=== PATIENT | female | born 1940 | race Caucasian/White ===

== ENCOUNTER 2019-10-17 18:19 | Observation (INO) | payer MEDICARE, OTHER ==
[2019-10-17] MEDS ORDERED: BABY ASPIRIN 81 MG CHEW PO ONE (18:38)
[2019-10-17] MEDS ORDERED: BABY ASPIRIN 81 MG CHEW ONE (18:42)
--- NOTE | 2019-10-17 18:46 | ERPHSYRPT ---
- History of Present Illness Source: patient, family Exam Limitations: no limitations Patient Subjective Stated Complaint: pt here for tightness to jaw and face since 5pm today, she states that is how she left when she had her last DC, she has 3 heart stents, only other co is nausea. Triage Nursing Assessment: pt alert, walked in resp easy, chest clear, abd soft , skin w/d/p. no edema noted , Physician History: The patient is 78-year-old female with a past medical history significant for CAD, coronary artery stents reportedly placed in [place] in either 2012 or 2013, hyperlipidemia, and osteoarthritis of the right knee presents with a chief complaint of bilateral jaw pain, nausea, and the urge to move her bowels that started around 1700 this evening after she got done eating dinner. She states that she got from the dinner table after eating dinner and started walking and experience her symptoms shortly thereafter. Her nausea and urge to move her bowels have since resolved however she is currently complaining of persistent bilateral jaw pain and states that she has felt similar symptoms that led to her coronary artery stents and were an anginal equivalent at that time. She denies dizziness, syncope, back pain, chest pain or chest tightness, and dyspnea. Denies diaphoresis. She reportedly took 2 baby aspirin this morning and takes this same amount of aspirin daily. She is no longer taking Plavix. She states her proof carrier is Dr. Murrell in [place]. He seeks treatment today in the emergency department out of concern she may be suffering a heart attack. She was accompanied by her daughter who also provided details pertaining to the HPI. Associated Symptoms: nausea, other (Bilateral jaw pain), No abdominal pain, No shortness of breath, No diaphoresis, No cough, No chest pain Allergies/Adverse Reactions: Beta-Blockers (Beta-Adrenergic Bloc Allergy (Verified 10/17/19 18:30) morphine Allergy (Verified 10/17/19 18:30) Hives Home Medications: Aspirin 81 gm Chew [Baby Aspirin 81 mg Chew] 81 mg PO DAILY 06/05/15 [ History] Pravastatin Sodium 20 mg DAILY 10/17/19 [History] Hx Tetanus, Diphtheria Vaccination/Date Given: No Hx Influenza Vaccination/Date Given: No Hx Pneumococcal Vaccination/Date Given: No Immunizations Up to Date: Yes - Review of Systems Constitutional: No Fever, No Chills Eyes: No Symptoms Ears, Nose, & Throat: Other (Bilateral jaw pain, globus sensation) Respiratory: No Symptoms, No Dyspnea, No Dyspnea on Exertion (HYLTON), No Stridor, No Wheezing Cardiac: No Chest Pain, No Edema, No Palpitations, No Syncope, No Orthopnea Abdominal/Gastrointestinal: Nausea, No Abdominal Pain, No Vomiting, No Diarrhea , No Constipation Genitourinary Symptoms: No Dysuria Musculoskeletal: No Symptoms, No Back Pain Skin: No Symptoms Neurological: No Symptoms Psychological: No Symptoms Endocrine: No Symptoms All Other Systems: Reviewed and Negative - Past Medical History Pertinent Past Medical History: Yes Neurological History: No Pertinent History ENT History: No Pertinent History Cardiac History: Coronary Artery Disease, Myocardial Infarction (DC) Respiratory History: No Pertinent History Endocrine Medical History: No Pertinent History Musculoskeletal History: No Pertinent History GI Medical History: No Pertinent History History: No Pertinent History Psycho-Social History: No Pertinent History Female Reproductive Disorders: No Pertinent History - Past Surgical History Past Surgical History: Yes Neuro Surgical History: No Pertinent History Cardiac: Cardiac Catheterization, Cardiac Stent Respiratory: No Pertinent History Gastrointestinal: No Pertinent History Genitourinary: No Pertinent History Musculoskeletal: No Pertinent History Female Surgical History: Hysterectomy Other Surgical History: left shoulder - Social History Smoking Status: Never smoker Exposure to second hand smoke: No Drug Use: none Patient Lives Alone: No - Female History Hx Last Menstrual Period: post Hx Now: No - Nursing Vital Signs Nursing Vital Signs: Initial Vital Signs Temperature 97.0 F 10/17/19 18:22 Pulse Rate 70 10/17/19 18:22 Respiratory Rate 18 10/17/19 18:22 Blood Pressure 175/97 10/17/19 18:22 O2 Sat by Pulse Oximetry 98 10/17/19 18:22 Pain Scale Pain Intensity 0 - Physical Exam General Appearance: no apparent distress, alert Eye Exam: PERRL/EOMI, eyes nml inspection, No scleral icterus, No pale conjunctivae, No photophobia Ears, Nose, Throat Exam: normal ENT inspection, TMs normal, No pharynx normal, No TM abnormal (R), No TM abnormal (L), No pharyngeal erythema, No tonsillar exudate Neck Exam: normal inspection, non-tender, supple, No meningismus Respiratory Exam: normal breath sounds, lungs clear, airway intact, No chest tenderness, No respiratory distress, No diminished breath sounds, No accessory muscle use Cardiovascular Exam: normal heart sounds, normal peripheral pulses, tachycardia , capillary refill <2 sec, No murmur, No friction rub, No gallop, No edema Gastrointestinal/Abdomen Exam: soft, No tenderness, No distention, No mass, No guarding Pelvic Exam: not done Rectal Exam: deferred Back Exam: normal inspection Extremity Exam: normal inspection, other (No asymmetric lower extremity edema, calf tenderness, or erythema to suggest ) Neurologic Exam: alert, oriented x 3, cooperative, normal mood/affect Skin Exam: normal color, warm, dry, No rash, No petechiae, No jaundice SpO2 Interpretation: normal SpO2: 98 O2 Delivery: Room Air - Course Nursing assessment & vital signs reviewed: Yes EKG Interpreted by Me: RATE, Sinus Tach, NORMAL AXIS, NORMAL INTERVALS, Other ( Sinus tachycardia, ventricular rate 110 bpm, SD interval 183 ms, QRS duration 108 ms, QT/QTc 342/462 ms, no evidence of obvious myocardial ischemia or injury , EKG appears similar to an EKG obtained on July 15, 2016, couplet of PVCs present) - Radiology Exams Chest X-ray Interpretation: Interpreted by me, Reviewed by me (Negative for acute cardiopulmonary pathology. There appears to be possible hiatal hernia.) Ordered Tests: Active Orders 24 hr Category Date Time Status Fixed Income Manager STAT Care 10/17/19 18:35 Active EKG-ER Only STAT Care 10/17/19 18:35 Active IV Insertion STAT Care 10/17/19 18:35 Active Pulse Oximetry (ED) STAT Care 10/17/19 18:38 Active CHEST 2 VIEWS (PA AND LAT) Stat Exams 10/17/19 18:39 Taken BMP Stat Lab 10/17/19 18:50 Completed CBC W DIFF Stat Lab 10/17/19 18:50 Completed D-DIMER QUANTITATIVE Stat Lab 10/17/19 18:50 Completed NT PRO BNP Stat Lab 10/17/19 18:50 Completed TROPONIN Q3H Lab 10/17/19 18:50 Completed TROPONIN Q3H Lab 10/17/19 21:50 Completed TROPONIN Q3H Lab 10/18/19 00:45 Ordered TROPONIN Q3H Lab 10/18/19 03:45 Ordered TROPONIN Q3H Lab 10/18/19 06:45 Ordered Medication Summary Discontinued Medications Generic Name Dose Route Start Last Admin Trade Name Freq PRN Reason Stop Dose Admin Aspirin 162 mg 10/17/19 18:38 10/17/19 18:44 Baby Aspirin 81 Mg Chew PO 10/17/19 18:39 162 mg STAT ONE Administration Aspirin Confirm 10/17/19 18:42 Baby Aspirin 81 Mg Chew Administered 10/17/19 18:43 Dose 162 mg .ROUTE .STK-MED ONE Lab/Rad Data: Laboratory Result Diagrams 10/17/19 18:50 10/17/19 18:50 Laboratory Results 10/17/19 10/17/19 10/17/19 Range/Units 21:50 18:50 18:50 WBC (4.0-10.5) K/mm3 RBC (4.1-5.4) M/mm3 Hgb (12.0-16.0) gm/dl Hct (35-47) % MCV (78-100) fl MCH (26-32) pg MCHC (32-36) g/dl RDW (11.5-14.0) % Plt Count (150-450) K/mm3 MPV (7.5-11.0) fl Gran % (36.0-66.0) % Eos # (Auto) (0-0.5) Absolute Lymphs (auto) (1.0-4.6) Absolute Monos (auto) (0.0-1.3) Lymphocytes % (24.0-44.0) % Monocytes % (0.0-12.0) % Eosinophils % (0.00-5.0) % Basophils % (0.0-0.4) % Absolute Granulocytes (1.4-6.9) Basophils # (0-0.4) D-Dimer (215-500) ng/mL Sodium (137-145) mmol/L Potassium (3.5-5.1) mmol/L Chloride (98-107) mmol/L Carbon Dioxide (22-30) mmol/L Anion Gap (5-15) MEQ/L BUN (7-17) mg/dL Creatinine (0.52-1.04) mg/dL Estimated GFR ML/MIN Glucose (74-106) mg/dL Hemoglobin A1c 5.78 (4.5-6.0) % Calcium (8.4-10.2) mg/dL Troponin I < 0.012 < 0.012 (0.000-0.034) ng/mL NT-Pro-B Natriuret Pep (0-1800) pg/mL Slides for Path Review 10/17/19 10/17/19 10/17/19 Range/Units 18:50 18:50 18:50 WBC 4.3 (4.0-10.5) K/mm3 RBC 4.05 L (4.1-5.4) M/mm3 Hgb 12.7 (12.0-16.0) gm/dl Hct 37.8 (35-47) % MCV 93.3 (78-100) fl MCH 31.4 (26-32) pg MCHC 33.6 (32-36) g/dl RDW 12.5 (11.5-14.0) % Plt Count 229 (150-450) K/mm3 MPV 9.1 (7.5-11.0) fl Gran % 88.5 H (36.0-66.0) % Eos # (Auto) 0 (0-0.5) Absolute Lymphs (auto) 0.45 L (1.0-4.6) Absolute Monos (auto) 0.03 (0.0-1.3) Lymphocytes % 10.6 L (24.0-44.0) % Monocytes % 0.7 (0.0-12.0) % Eosinophils % 0.0 (0.00-5.0) % Basophils % 0.2 (0.0-0.4) % Absolute Granulocytes 3.77 (1.4-6.9) Basophils # 0.01 (0-0.4) D-Dimer 467 (215-500) ng/mL Sodium 139 (137-145) mmol/L Potassium 3.8 (3.5-5.1) mmol/L Chloride 107 (98-107) mmol/L Carbon Dioxide 22 (22-30) mmol/L Anion Gap 13.8 (5-15) MEQ/L BUN 19 H (7-17) mg/dL Creatinine 0.61 (0.52-1.04) mg/dL Estimated GFR > 60.0 ML/MIN Glucose 334 H (74-106) mg/dL Hemoglobin A1c (4.5-6.0) % Calcium 9.6 (8.4-10.2) mg/dL Troponin I (0.000-0.034) ng/mL NT-Pro-B Natriuret Pep 281 (0-1800) pg/mL Slides for Path Review YES - Progress Progress: improved, re-examined Progress Note: 10/17/19 18:55 The charge nurse back to [facility] and requested records pertaining to any cardiology progress notes, cardiac cath reports or echocardiograms that may be present in the record system for me to review. I reviewed the patient's EMR today. She was admitted on July 15, 2016 for chest pain and underwent a chest pain rule out during that admission and subsequently was discharged. She had an echocardiogram that same day which showed evidence of no wall motion abnormality and an LVEF 50 to 60%. She had some evidence of left ventricular diastolic dysfunction but otherwise no major abnormalities. Also reviewed her EKG dated July 15, 2016 which appears similar to EKG cristina. 10/17/19 19:13 Records were faxed from [facility]. It appears she had a cardiac catheterization on #29 2015 which showed 25% in-stent stenosis of the distal portion of the stent located in her LAD. The left circumflex was short normal. Right coronary artery was dominant and noted to have 20% narrowing in the midsegment. The second branch of the LAD shows 60% narrowing in its ostium. 10/17/19 20:13 10/17/19 20:[address] Mike, the patient's primary care provider, discussed the case with him. He agreed to admit if the patient's second troponin comes back within normal limits otherwise, if she does rule in ACS, she will need to be transfer to [facility] given that is where her proof carrier is located. 10/17/19 22:25 His second troponin is within normal limits. She will be admitted to the medical floor with telemetry for chest pain rule out and Dr. Mike to see in the morning. Discussed with : Nia (Spoke to Dr. Mike, the patient's primary care provider, and discussed the case with him. He agreed to admit for observation for chest pain rule out if the patient second troponin is within normal limits. If her second troponin is positive she will likely be transferred to [facility] for further evaluation and management.) Counseled pt/family regarding: lab results, diagnosis, rad results - Departure Departure Disposition: Observation Clinical Impression: Jaw pain, Atypical chest pain Condition: Stable Critical Care Time: No Referrals: SARKIS MIKE MD [Primary Care Provider] -
[2019-10-17 18:59] LABS: Absolute Neutrophil Ct (ANC) 3.77 (1.4-6.9); BASOPHIL % 0.2 % (0.0-0.4); Basophil (Absolute #) 0.01 (0-0.4); Eosinophil (Absolute #) 0 (0-0.5); Hematocrit 37.8 % (35-47); Hemoglobin 12.7 gm/dl (12.0-16.0); Lymphocyte (Absolute #) 0.45 (1.0-4.6); Lymphocytes % 10.6 % (24.0-44.0); Mean Cell Volume 93.3 fl (78-100); Mean Corpuscular Hemoglobin 31.4 pg (26-32); Mean Corpuscular Hgb Concent. 33.6 g/dl (32-36); Mean Platelet Volume 9.1 fl (7.5-11.0); Monocyte (Absolute #) 0.03 (0.0-1.3); Monocytes % 0.7 % (0.0-12.0); Neutrophil % 88.5 % (36.0-66.0); Platelet Count 229 K/mm3 (150-450); Red Blood Count 4.05 M/mm3 (4.1-5.4); Red Cell Distribution Width 12.5 % (11.5-14.0); White Blood Count 4.3 K/mm3 (4.0-10.5)
[2019-10-17 19:19] LABS: ANION GAP 13.8 MEQ/L (5-15); BLOOD UREA NITROGEN 19 mg/dL (7-17); CHLORIDE 107 mmol/L (98-107); Calcium 9.6 mg/dL (8.4-10.2); Carbon Dioxide 22 mmol/L (22-30); Creatinine 1 0.61 mg/dL (0.52-1.04); Glucose 334 mg/dL (74-106); NT PRO BNP 281 pg/mL (0-1800); Potassium 3.8 mmol/L (3.5-5.1); SODIUM 139 mmol/L (137-145)
[2019-10-17 21:37] LABS: Slide Review 1 YES
[2019-10-17] MEDS ORDERED: MILK OF MAGNESIA 30 ML PO PRN (22:40)
[2019-10-17] MEDS ORDERED: Senokot-S Tablet PO PRN (22:40)
[2019-10-17] MEDS ORDERED: Zofran 4 MG/2 ML VIAL IV PRN (22:40)
[2019-10-17] MEDS ORDERED: MAALOX ES 30 ML UNIT DOSE PO PRN (22:40)
[2019-10-17] MEDS ORDERED: TYLENOL 325 MG PO PRN (22:40)
[2019-10-18 05:09] LABS: Risk Ratio 1.9
[2019-10-18] MEDS ORDERED: Sodium Chloride 0.9% 10 ML FLUSH Syringe IV SCH (06:00)
[2019-10-18 07:53] VITALS: BP 124/64; PULSE 86; O2SAT 93
--- NOTE | 2019-10-18 08:06 | PCM.SSS ---
History of Present Illness - Chief Complaint Chief Complaint: Atypical chest pain History of Present Illness: is a 78 year old female who presented to the ER with tightness in her face and neck with globus sensation, symptoms similar to previous CA. There was no chest pain, no shortness of breath, symptoms began after eating dinner and she never eats sugar but ate some donuts, she has been symptom free since admission and requesting to go home this morning. She has a known hx of CAD with stents and sees Dr Major. - Review of Systems Constitutional: No Fever, No Chills Respiratory: No Cough, No Short Of Breath Cardiac: No Chest Pain, No Edema, No Syncope Abdominal/Gastrointestinal: No Abdominal Pain, No Nausea, No Vomiting, No Diarrhea Genitourinary Symptoms: No Dysuria All Other Systems: Reviewed and Negative Medications & Allergies Home Medications: Home Medication List Aspirin 81 gm Chew [Baby Aspirin 81 mg Chew] 81 mg PO DAILY 06/05/15 [ History Confirmed 10/17/19] Pravastatin Sodium 20 mg DAILY 10/17/19 [History Confirmed 10/17/19] Albuterol Sulfate [Albuterol Sulfate Hfa] 2 puffs IH Q4-6HPRN PRN 10/18/19 [ History Confirmed 10/18/19] Allergies/Adverse Reactions: Allergies Allergy/AdvReac Type Severity Reaction Status Date / Time Beta-Blockers Allergy Verified 10/17/19 18:30 (Beta-Adrenergic Bloc morphine Allergy Hives Verified 10/17/19 18:30 - Past Medical History Past Medical History: Yes Neurological History: No Pertinent History ENT History: No Pertinent History Cardiac History: Coronary Artery Disease, Myocardial Infarction (CA) Respiratory History: Asthma Endocrine Medical History: No Pertinent History Musculoskelatal History: No Pertinent History GI Medical History: No Pertinent History History: No Pertinent History Pyscho-Social History: No Pertinent History Reproductive Disorders: No Pertinent History - Female History Hx Last Menstrual Period: post menopausal Are you now?: No - Past Surgical History Past Surgical History: Yes Neuro Surgical History: No Pertinent History Cardiac History: Cardiac Catheterization, Cardiac Stent Respiratory Surgery: No Pertinent History GI Surgical History: No Pertinent History Genitourinary Surgical Hx: No Pertinent History Musculskeletal Surgical Hx: No Pertinent History Female Surgical History: Hysterectomy Other Surgical History: left shoulder - Social History Smoking Status: Never smoker Exposure to second hand smoke: No Alcohol: None Drug Use: none - Physical Exam Vital Signs: Vital Signs - 24 hr Temp Pulse Pulse Resp BP Pulse Ox 10/18/19 07:53 97.9 F 86 17 124/64 93 L 10/18/19 07:08 94 L 10/18/19 04:00 97.8 F 77 16 134/75 95 10/17/19 22:55 97.8 F 87 18 168/79 96 10/17/19 22:25 98 10/17/19 21:50 89 22 142/81 95 10/17/19 21:49 86 18 139/80 94 L 10/17/19 20:54 92 H 16 139/85 94 L 10/17/19 20:46 99 H 20 136/76 98 10/17/19 19:45 104 H 20 152/80 95 10/17/19 19:05 96 10/17/19 18:58 104 H 18 123/70 94 L 10/17/19 18:42 95 10/17/19 18:22 97.0 F 110 H 70 18 175/97 98 General Appearance: no apparent distress, alert Neurologic Exam: alert, oriented x 3, cooperative, normal mood/affect, nml cerebellar function, nml station & gait, sensation nml, No motor deficits Neck Exam: normal inspection, non-tender, supple, full range of motion Respiratory Exam: normal breath sounds, lungs clear, No respiratory distress Cardiovascular Exam: regular rate/rhythm, normal heart sounds, normal peripheral pulses Gastrointestinal/Abdomen Exam: soft, normal bowel sounds, No tenderness, No mass Extremity Exam: normal inspection, normal range of motion, pelvis stable Skin Exam: normal color, warm, dry, No rash Results - Labs Lab/Micro Results: Lab Results-Last 24 Hours 10/17/19 10/17/19 10/17/19 Range/Units 18:50 18:50 18:50 WBC 4.3 (4.0-10.5) K/mm3 RBC 4.05 L (4.1-5.4) M/mm3 Hgb 12.7 (12.0-16.0) gm/dl Hct 37.8 (35-47) % MCV 93.3 (78-100) fl MCH 31.4 (26-32) pg MCHC 33.6 (32-36) g/dl RDW 12.5 (11.5-14.0) % Plt Count 229 (150-450) K/mm3 MPV 9.1 (7.5-11.0) fl Gran % 88.5 H (36.0-66.0) % Eos # (Auto) 0 (0-0.5) Absolute Lymphs (auto) 0.45 L (1.0-4.6) Absolute Monos (auto) 0.03 (0.0-1.3) Lymphocytes % 10.6 L (24.0-44.0) % Monocytes % 0.7 (0.0-12.0) % Eosinophils % 0.0 (0.00-5.0) % Basophils % 0.2 (0.0-0.4) % Absolute Granulocytes 3.77 (1.4-6.9) Basophils # 0.01 (0-0.4) D-Dimer 467 (215-500) ng/mL Sodium 139 (137-145) mmol/L Potassium 3.8 (3.5-5.1) mmol/L Chloride 107 (98-107) mmol/L Carbon Dioxide 22 (22-30) mmol/L Anion Gap 13.8 (5-15) MEQ/L BUN 19 H (7-17) mg/dL Creatinine 0.61 (0.52-1.04) mg/dL Estimated GFR > 60.0 ML/MIN Glucose 334 H (74-106) mg/dL Hemoglobin A1c (4.5-6.0) % Calcium 9.6 (8.4-10.2) mg/dL Troponin I (0.000-0.034) ng/mL NT-Pro-B Natriuret Pep 281 (0-1800) pg/mL Triglycerides (30-150) mg/dL Cholesterol (50-200) mg/dL LDL Cholesterol (30-100) mg/dL HDL Cholesterol (40-60) mg/dL Heart Disease Risk Ratio Slides for Path Review YES 10/17/19 10/17/19 10/17/19 Range/Units 18:50 18:50 21:50 WBC (4.0-10.5) K/mm3 RBC (4.1-5.4) M/mm3 Hgb (12.0-16.0) gm/dl Hct (35-47) % MCV (78-100) fl MCH (26-32) pg MCHC (32-36) g/dl RDW (11.5-14.0) % Plt Count (150-450) K/mm3 MPV (7.5-11.0) fl Gran % (36.0-66.0) % Eos # (Auto) (0-0.5) Absolute Lymphs (auto) (1.0-4.6) Absolute Monos (auto) (0.0-1.3) Lymphocytes % (24.0-44.0) % Monocytes % (0.0-12.0) % Eosinophils % (0.00-5.0) % Basophils % (0.0-0.4) % Absolute Granulocytes (1.4-6.9) Basophils # (0-0.4) D-Dimer (215-500) ng/mL Sodium (137-145) mmol/L Potassium (3.5-5.1) mmol/L Chloride (98-107) mmol/L Carbon Dioxide (22-30) mmol/L Anion Gap (5-15) MEQ/L BUN (7-17) mg/dL Creatinine (0.52-1.04) mg/dL Estimated GFR ML/MIN Glucose (74-106) mg/dL Hemoglobin A1c 5.78 (4.5-6.0) % Calcium (8.4-10.2) mg/dL Troponin I < 0.012 < 0.012 (0.000-0.034) ng/mL NT-Pro-B Natriuret Pep (0-1800) pg/mL Triglycerides (30-150) mg/dL Cholesterol (50-200) mg/dL LDL Cholesterol (30-100) mg/dL HDL Cholesterol (40-60) mg/dL Heart Disease Risk Ratio Slides for Path Review 10/18/19 10/18/19 10/18/19 Range/Units 01:00 03:50 03:50 WBC (4.0-10.5) K/mm3 RBC (4.1-5.4) M/mm3 Hgb (12.0-16.0) gm/dl Hct (35-47) % MCV (78-100) fl MCH (26-32) pg MCHC (32-36) g/dl RDW (11.5-14.0) % Plt Count (150-450) K/mm3 MPV (7.5-11.0) fl Gran % (36.0-66.0) % Eos # (Auto) (0-0.5) Absolute Lymphs (auto) (1.0-4.6) Absolute Monos (auto) (0.0-1.3) Lymphocytes % (24.0-44.0) % Monocytes % (0.0-12.0) % Eosinophils % (0.00-5.0) % Basophils % (0.0-0.4) % Absolute Granulocytes (1.4-6.9) Basophils # (0-0.4) D-Dimer (215-500) ng/mL Sodium (137-145) mmol/L Potassium (3.5-5.1) mmol/L Chloride (98-107) mmol/L Carbon Dioxide (22-30) mmol/L Anion Gap (5-15) MEQ/L BUN (7-17) mg/dL Creatinine (0.52-1.04) mg/dL Estimated GFR ML/MIN Glucose (74-106) mg/dL Hemoglobin A1c (4.5-6.0) % Calcium (8.4-10.2) mg/dL Troponin I < 0.012 < 0.012 (0.000-0.034) ng/mL NT-Pro-B Natriuret Pep (0-1800) pg/mL Triglycerides 78 (30-150) mg/dL Cholesterol 169 (50-200) mg/dL LDL Cholesterol 69 (30-100) mg/dL HDL Cholesterol 87 H (40-60) mg/dL Heart Disease Risk Ratio 1.9 Slides for Path Review 10/18/19 Range/Units 06:45 WBC (4.0-10.5) K/mm3 RBC (4.1-5.4) M/mm3 Hgb (12.0-16.0) gm/dl Hct (35-47) % MCV (78-100) fl MCH (26-32) pg MCHC (32-36) g/dl RDW (11.5-14.0) % Plt Count (150-450) K/mm3 MPV (7.5-11.0) fl Gran % (36.0-66.0) % Eos # (Auto) (0-0.5) Absolute Lymphs (auto) (1.0-4.6) Absolute Monos (auto) (0.0-1.3) Lymphocytes % (24.0-44.0) % Monocytes % (0.0-12.0) % Eosinophils % (0.00-5.0) % Basophils % (0.0-0.4) % Absolute Granulocytes (1.4-6.9) Basophils # (0-0.4) D-Dimer (215-500) ng/mL Sodium (137-145) mmol/L Potassium (3.5-5.1) mmol/L Chloride (98-107) mmol/L Carbon Dioxide (22-30) mmol/L Anion Gap (5-15) MEQ/L BUN (7-17) mg/dL Creatinine (0.52-1.04) mg/dL Estimated GFR ML/MIN Glucose (74-106) mg/dL Hemoglobin A1c (4.5-6.0) % Calcium (8.4-10.2) mg/dL Troponin I < 0.012 (0.000-0.034) ng/mL NT-Pro-B Natriuret Pep (0-1800) pg/mL Triglycerides (30-150) mg/dL Cholesterol (50-200) mg/dL LDL Cholesterol (30-100) mg/dL HDL Cholesterol (40-60) mg/dL Heart Disease Risk Ratio Slides for Path Review - Radiology Impressions Radiology Exams & Impressions: Radiology Procedures Category Date Time Status CHEST 2 VIEWS (PA AND LAT) Stat Exams 10/17/19 18:39 Taken - Other Procedures and Tests Respiratory Therapy 10/19/19 05:00 EKG DAILY 10/20/19 05:00 EKG DAILY 10/21/19 05:00 EKG DAILY Assessment/Plan (1) Atypical chest pain Current Visit: Yes Status: Acute Assessment & Plan: CA ruled out, lipids are great. was hyperglycemic on arrival but a1c normal. continue current meds and advised to f/u with Dr Major as outpatient. Code(s): R07.89 - OTHER CHEST PAIN (2) Jaw pain Current Visit: Yes Status: Acute Code(s): R68.84 - JAW PAIN Hospital Summary - Vitals & Intake/Output Vital Signs: Vital Signs Temperature 97.9 F 10/18/19 07:53 Pulse Rate 86 10/18/19 07:53 Respiratory Rate 17 10/18/19 07:53 Blood Pressure 124/64 10/18/19 07:53 O2 Sat by Pulse Oximetry 93 L 10/18/19 07:53 Intake & Output: Intake & Output 10/15/19 10/16/19 10/17/19 10/18/19 11:59 11:59 11:59 11:59 Intake Total 200 Output Total 1000 Balance -800 Weight 72.4 kg - Lab Result Diagrams: 10/17/19 18:50 10/17/19 18:50 Lab Results-Last 24 Hrs: Lab Results-Last 24 Hours 10/17/19 10/17/19 10/17/19 Range/Units 18:50 18:50 18:50 WBC 4.3 (4.0-10.5) K/mm3 RBC 4.05 L (4.1-5.4) M/mm3 Hgb 12.7 (12.0-16.0) gm/dl Hct 37.8 (35-47) % MCV 93.3 (78-100) fl MCH 31.4 (26-32) pg MCHC 33.6 (32-36) g/dl RDW 12.5 (11.5-14.0) % Plt Count 229 (150-450) K/mm3 MPV 9.1 (7.5-11.0) fl Gran % 88.5 H (36.0-66.0) % Eos # (Auto) 0 (0-0.5) Absolute Lymphs (auto) 0.45 L (1.0-4.6) Absolute Monos (auto) 0.03 (0.0-1.3) Lymphocytes % 10.6 L (24.0-44.0) % Monocytes % 0.7 (0.0-12.0) % Eosinophils % 0.0 (0.00-5.0) % Basophils % 0.2 (0.0-0.4) % Absolute Granulocytes 3.77 (1.4-6.9) Basophils # 0.01 (0-0.4) D-Dimer 467 (215-500) ng/mL Sodium 139 (137-145) mmol/L Potassium 3.8 (3.5-5.1) mmol/L Chloride 107 (98-107) mmol/L Carbon Dioxide 22 (22-30) mmol/L Anion Gap 13.8 (5-15) MEQ/L BUN 19 H (7-17) mg/dL Creatinine 0.61 (0.52-1.04) mg/dL Estimated GFR > 60.0 ML/MIN Glucose 334 H (74-106) mg/dL Hemoglobin A1c (4.5-6.0) % Calcium 9.6 (8.4-10.2) mg/dL Troponin I (0.000-0.034) ng/mL NT-Pro-B Natriuret Pep 281 (0-1800) pg/mL Triglycerides (30-150) mg/dL Cholesterol (50-200) mg/dL LDL Cholesterol (30-100) mg/dL HDL Cholesterol (40-60) mg/dL Heart Disease Risk Ratio Slides for Path Review YES 10/17/19 10/17/19 10/17/19 Range/Units 18:50 18:50 21:50 WBC (4.0-10.5) K/mm3 RBC (4.1-5.4) M/mm3 Hgb (12.0-16.0) gm/dl Hct (35-47) % MCV (78-100) fl MCH (26-32) pg MCHC (32-36) g/dl RDW (11.5-14.0) % Plt Count (150-450) K/mm3 MPV (7.5-11.0) fl Gran % (36.0-66.0) % Eos # (Auto) (0-0.5) Absolute Lymphs (auto) (1.0-4.6) Absolute Monos (auto) (0.0-1.3) Lymphocytes % (24.0-44.0) % Monocytes % (0.0-12.0) % Eosinophils % (0.00-5.0) % Basophils % (0.0-0.4) % Absolute Granulocytes (1.4-6.9) Basophils # (0-0.4) D-Dimer (215-500) ng/mL Sodium (137-145) mmol/L Potassium (3.5-5.1) mmol/L Chloride (98-107) mmol/L Carbon Dioxide (22-30) mmol/L Anion Gap (5-15) MEQ/L BUN (7-17) mg/dL Creatinine (0.52-1.04) mg/dL Estimated GFR ML/MIN Glucose (74-106) mg/dL Hemoglobin A1c 5.78 (4.5-6.0) % Calcium (8.4-10.2) mg/dL Troponin I < 0.012 < 0.012 (0.000-0.034) ng/mL NT-Pro-B Natriuret Pep (0-1800) pg/mL Triglycerides (30-150) mg/dL Cholesterol (50-200) mg/dL LDL Cholesterol (30-100) mg/dL HDL Cholesterol (40-60) mg/dL Heart Disease Risk Ratio Slides for Path Review 10/18/19 10/18/19 10/18/19 Range/Units 01:00 03:50 03:50 WBC (4.0-10.5) K/mm3 RBC (4.1-5.4) M/mm3 Hgb (12.0-16.0) gm/dl Hct (35-47) % MCV (78-100) fl MCH (26-32) pg MCHC (32-36) g/dl RDW (11.5-14.0) % Plt Count (150-450) K/mm3 MPV (7.5-11.0) fl Gran % (36.0-66.0) % Eos # (Auto) (0-0.5) Absolute Lymphs (auto) (1.0-4.6) Absolute Monos (auto) (0.0-1.3) Lymphocytes % (24.0-44.0) % Monocytes % (0.0-12.0) % Eosinophils % (0.00-5.0) % Basophils % (0.0-0.4) % Absolute Granulocytes (1.4-6.9) Basophils # (0-0.4) D-Dimer (215-500) ng/mL Sodium (137-145) mmol/L Potassium (3.5-5.1) mmol/L Chloride (98-107) mmol/L Carbon Dioxide (22-30) mmol/L Anion Gap (5-15) MEQ/L BUN (7-17) mg/dL Creatinine (0.52-1.04) mg/dL Estimated GFR ML/MIN Glucose (74-106) mg/dL Hemoglobin A1c (4.5-6.0) % Calcium (8.4-10.2) mg/dL Troponin I < 0.012 < 0.012 (0.000-0.034) ng/mL NT-Pro-B Natriuret Pep (0-1800) pg/mL Triglycerides 78 (30-150) mg/dL Cholesterol 169 (50-200) mg/dL LDL Cholesterol 69 (30-100) mg/dL HDL Cholesterol 87 H (40-60) mg/dL Heart Disease Risk Ratio 1.9 Slides for Path Review 10/18/19 Range/Units 06:45 WBC (4.0-10.5) K/mm3 RBC (4.1-5.4) M/mm3 Hgb (12.0-16.0) gm/dl Hct (35-47) % MCV (78-100) fl MCH (26-32) pg MCHC (32-36) g/dl RDW (11.5-14.0) % Plt Count (150-450) K/mm3 MPV (7.5-11.0) fl Gran % (36.0-66.0) % Eos # (Auto) (0-0.5) Absolute Lymphs (auto) (1.0-4.6) Absolute Monos (auto) (0.0-1.3) Lymphocytes % (24.0-44.0) % Monocytes % (0.0-12.0) % Eosinophils % (0.00-5.0) % Basophils % (0.0-0.4) % Absolute Granulocytes (1.4-6.9) Basophils # (0-0.4) D-Dimer (215-500) ng/mL Sodium (137-145) mmol/L Potassium (3.5-5.1) mmol/L Chloride (98-107) mmol/L Carbon Dioxide (22-30) mmol/L Anion Gap (5-15) MEQ/L BUN (7-17) mg/dL Creatinine (0.52-1.04) mg/dL Estimated GFR ML/MIN Glucose (74-106) mg/dL Hemoglobin A1c (4.5-6.0) % Calcium (8.4-10.2) mg/dL Troponin I < 0.012 (0.000-0.034) ng/mL NT-Pro-B Natriuret Pep (0-1800) pg/mL Triglycerides (30-150) mg/dL Cholesterol (50-200) mg/dL LDL Cholesterol (30-100) mg/dL HDL Cholesterol (40-60) mg/dL Heart Disease Risk Ratio Slides for Path Review - Radiology Exams Ordered Rad Exams-Entire Visit: Radiology Procedures Category Date Time Status CHEST 2 VIEWS (PA AND LAT) Stat Exams 10/17/19 18:39 Taken - Procedures and Test Procedures and Tests throughout Hospitalization: Therapy Orders & Screens 10/17/19 22:40 EKG Q8HX2,QAMX3,PRN Comment: Diagnosis: Atypical chest pain 10/18/19 02:30 EKG ROUTINE Comment: Diagnosis: Atypical chest pain 10/19/19 05:00 EKG DAILY Comment: Diagnosis: Atypical chest pain 10/20/19 05:00 EKG DAILY Comment: Diagnosis: Atypical chest pain 10/21/19 05:00 EKG DAILY Comment: Diagnosis: Atypical chest pain - Discharge Disposition: Home, Self-Care Condition: Stable Prescriptions: Continue Aspirin 81 gm Chew [Baby Aspirin 81 mg Chew] 81 mg PO DAILY Pravastatin Sodium 20 mg DAILY Albuterol Sulfate [Albuterol Sulfate Hfa] 2 puffs IH Q4-6HPRN PRN PRN Reason: Shortness Of Breath/Wheezing Follow up with: SARKIS MIKE MD [Primary Care Provider] - 1 Week PURNIMA MAJOR [ACTIVE STAFF] - 1 Week
--- NOTE | 2019-10-18 08:34 | XRAY ---
Indication: Chest pain. Comparison: July 15, 2016. PA/lateral chest again demonstrates normal heart and lungs with new small hiatal hernia. Bony thorax intact again with mild degenerative changes, mild scoliosis, and old left clavicle fracture. Impression: Nonacute chest with chronic features.
[2019-10-18] MEDS ORDERED: Ventolin Hfa MDI IH PRN (08:47)
[2019-10-18] MEDS ORDERED: VENTOLIN COMMON CANISTER IH PRN (08:57)
[2019-10-18] MEDS ORDERED: Ecotrin 325 MG PO SCH (10:00)
[2019-10-18] MEDS ORDERED: ECOTRIN 81 MG PO SCH (10:00)
[2019-10-18] MEDS ORDERED: BABY ASPIRIN 81 MG CHEW PO SCH (10:00)
[2019-10-18] MEDS ORDERED: ZOCOR 20MG PO SCH (22:00)
== END 2019-10-18 09:30 | disposition home or self-care (01) ==
LOC: ED 18:19 → MED SURG 22:37
PROVIDERS: ADMIT Family Medicine; ATTEND Family Medicine
DX: R07.89 Other chest pain (principal); Z79.899 Other long term (current) drug therapy; R68.84 Jaw pain; Z86.79 Personal history of other diseases of the circulatory system; I25.2 Old myocardial infarction
CPT/HCPCS: 36000; 36415; 71046; 80048; 80061; 83036; 83721; 83880; 84484; 85025; 85379; 93005; 93041; 93268; 94760; 99285; G0378; A9270-GY

== ENCOUNTER 2019-11-03 15:32 | Emergency (ER) | payer MEDICARE, OTHER ==
--- NOTE | 2019-11-03 15:55 | ERPHSYRPT ---
- History of Present Illness Time Seen by Provider: 11/03/19 15:45 Source: patient Exam Limitations: no limitations Patient Subjective Stated Complaint: pt reports shortness of breath starting approx 1 hour ago while she was eating a late lunch. pt reports she is due to see Dr. Murrell for her routine 6 month check-up soon. pt denies any chest pain at this time. Triage Nursing Assessment: pt is aox3, pleasant, talkative with staff, pupils perrl, afebrile, resps easy and non labored, pt lung sounds are clear throughout , no cough noted, cap refill < 3 seconds, radial pulses strong and equal, pt skin pink warm dry, no edema appreciated. Physician History: About 1 hour ago pt started with shortness of air. pt denies chest pain, fever, cough, vomiting, abdominal pain. Allergies/Adverse Reactions: Beta-Blockers (Beta-Adrenergic Bloc Allergy (Verified 11/03/19 15:52) morphine Allergy (Verified 11/03/19 15:52) Hives Home Medications: Aspirin 81 gm Chew [Baby Aspirin 81 mg Chew] 81 mg PO DAILY 06/05/15 [ History] Pravastatin Sodium 20 mg DAILY 10/17/19 [History] Albuterol Sulfate [Albuterol Sulfate Hfa] 2 puffs IH Q4-6HPRN PRN 10/18/19 [ History] Hx Tetanus, Diphtheria Vaccination/Date Given: No Hx Influenza Vaccination/Date Given: No Hx Pneumococcal Vaccination/Date Given: No Immunizations Up to Date: No Travel Risk - International Travel Have you traveled outside of the country in past 3 weeks: No Have you or anyone close to you been diagnosed with or: No Do your reside in a community with a known COVID-19 case?: No - Coronavirus Screening Has patient experienced Coronavirus symptoms: Yes Symptoms experienced: respiratory symptoms (i.e.Cought,shortness of breath) Date of respiratory symptoms onset:: 11/03/19 (shortness of air) - Review of Systems Constitutional: No Fever, No Chills Ears, Nose, & Throat: No Throat Pain Respiratory: Dyspnea, No Cough Cardiac: No Chest Pain Abdominal/Gastrointestinal: No Abdominal Pain, No Nausea, No Vomiting Neurological: No Headache All Other Systems: Reviewed and Negative - Past Medical History Pertinent Past Medical History: Yes Neurological History: No Pertinent History ENT History: No Pertinent History Cardiac History: Coronary Artery Disease, Myocardial Infarction ([place]) Respiratory History: Asthma Endocrine Medical History: No Pertinent History Musculoskeletal History: No Pertinent History GI Medical History: No Pertinent History History: No Pertinent History Psycho-Social History: No Pertinent History Female Reproductive Disorders: No Pertinent History - Past Surgical History Past Surgical History: Yes Neuro Surgical History: No Pertinent History Cardiac: Cardiac Catheterization, Cardiac Stent Respiratory: No Pertinent History Gastrointestinal: No Pertinent History Genitourinary: No Pertinent History Musculoskeletal: No Pertinent History Female Surgical History: Hysterectomy Other Surgical History: left shoulder - Social History Smoking Status: Never smoker Exposure to second hand smoke: No Drug Use: none Patient Lives Alone: No - Female History Hx Now: No - Nursing Vital Signs Nursing Vital Signs: Initial Vital Signs Temperature 98.7 F 11/03/19 15:45 Pulse Rate 92 H 11/03/19 15:45 Respiratory Rate 22 11/03/19 15:45 Blood Pressure 149/89 11/03/19 15:45 O2 Sat by Pulse Oximetry 95 11/03/19 15:45 Pain Scale Pain Intensity 0 - Physical Exam General Appearance: alert Eye Exam: PERRL/EOMI Ears, Nose, Throat Exam: normal pharynx Neck Exam: normal inspection Respiratory Exam: lungs clear Cardiovascular/Chest Exam: regular rate/rhythm Abdominal/Gastrointestinal Exam: soft, normal bowel sounds Extremity Exam: No pedal edema Peripheral Pulses Exam: dorsalis-pedis (R): 1+, dorsalis-pedis (L): 1+ Neurologic Exam: alert, cooperative Skin Exam: warm, dry SpO2 Interpretation: normal SpO2: 95 O2 Delivery: Room Air - Course Nursing assessment & vital signs reviewed: Yes EKG Interpreted by Me: RATE (90), Sinus Rhythm, NORMAL AXIS, NORMAL INTERVALS - Radiology Exams Chest X-ray Interpretation: Discussed w/ radiologist (no new or acute findings.) - CT Exams Chest CT Interpretation: Tele-radiologist Report (no evidence of pumonary embolus. no evidence of acute pulmonary pathology.) Ordered Tests: Active Orders 24 hr Category Date Time Status EKG-ER Only STAT Care 11/03/19 15:55 Active IV Insertion STAT Care 11/03/19 18:51 Active CHEST 2 VIEWS (PA AND LAT) Stat Exams 11/03/19 15:57 Completed CHEST WITH CONTRAST [CT] Stat Exams 11/03/19 18:53 Taken CBC W DIFF Stat Lab 11/03/19 16:20 Completed CMP Stat Lab 11/03/19 16:20 Completed CULTURE,URINE Stat Lab 11/03/19 19:58 Received D-DIMER QUANTITATIVE Stat Lab 11/03/19 16:20 Completed MAGNESIUM Stat Lab 11/03/19 16:20 Completed NT PRO BNP Stat Lab 11/03/19 16:20 Completed TROPONIN Q3H Lab 11/03/19 16:20 Completed TROPONIN Q3H Lab 11/03/19 21:18 Received TROPONIN Q3H Lab 11/03/19 22:00 Ordered TROPONIN Q3H Lab 11/04/19 01:00 Ordered TROPONIN Q3H Lab 11/04/19 04:00 Ordered UA W/RFX UR CULTURE Stat Lab 11/03/19 19:58 Completed Medication Summary Discontinued Medications Generic Name Dose Route Start Last Admin Trade Name Freq PRN Reason Stop Dose Admin Diphenhydramine HCl 12.5 mg 11/03/19 18:19 11/03/19 18:52 Benadryl 50 Mg/Ml IV 11/03/19 18:20 12.5 mg STAT ONE Administration Diphenhydramine HCl Confirm 11/03/19 18:41 Benadryl 50 Mg/Ml Administered 11/03/19 18:42 Dose 50 mg .ROUTE .[employer]-MED ONE Lab/Rad Data: Laboratory Result Diagrams 11/03/19 16:20 11/03/19 16:20 Laboratory Results 11/03/19 11/03/19 11/03/19 Range/Units 19:58 16:20 16:20 WBC (4.0-10.5) K/mm3 RBC (4.1-5.4) M/mm3 Hgb (12.0-16.0) gm/dl Hct (35-47) % MCV (78-100) fl MCH (26-32) pg MCHC (32-36) g/dl RDW (11.5-14.0) % Plt Count (150-450) K/mm3 MPV (7.5-11.0) fl Gran % (36.0-66.0) % Eos # (Auto) (0-0.5) Absolute Lymphs (auto) (1.0-4.6) Absolute Monos (auto) (0.0-1.3) Lymphocytes % (24.0-44.0) % Monocytes % (0.0-12.0) % Eosinophils % (0.00-5.0) % Basophils % (0.0-0.4) % Absolute Granulocytes (1.4-6.9) Basophils # (0-0.4) D-Dimer 595 H* (215-500) ng/mL Sodium (137-145) mmol/L Potassium (3.5-5.1) mmol/L Chloride (98-107) mmol/L Carbon Dioxide (22-30) mmol/L Anion Gap (5-15) MEQ/L BUN (7-17) mg/dL Creatinine (0.52-1.04) mg/dL Estimated GFR ML/MIN Glucose (74-106) mg/dL Calcium (8.4-10.2) mg/dL Magnesium (1.6-2.3) mg/dL Total Bilirubin (0.2-1.3) mg/dL AST (14-36) U/L ALT (0-35) U/L Alkaline Phosphatase (38-126) U/L Troponin I < 0.012 (0.000-0.034) ng/mL NT-Pro-B Natriuret Pep (0-1800) pg/mL Serum Total Protein (6.3-8.2) g/dL Albumin (3.5-5.0) g/dL Urine Color YELLOW (YELLOW) Urine Appearance CLEAR (CLEAR) Urine pH 5.0 (5-6) Ur Specific [place] 1.026 (1.005-1.025) Urine Protein NEGATIVE (Negative) Urine Ketones NEGATIVE (NEGATIVE) Urine Blood MODERATE (0-5) Glenn/ul Urine Nitrite NEGATIVE (NEGATIVE) Urine Bilirubin NEGATIVE (NEGATIVE) Urine Urobilinogen NEGATIVE (0-1) mg/dL Ur Leukocyte Esterase TRACE (NEGATIVE) Urine WBC (Auto) 3-5 (0-5) /HPF Urine RBC (Auto) 3-5 (0-2) /HPF U Epithel Cells (Auto) NONE (FEW) /HPF Urine Bacteria (Auto) NONE SEEN (NEGATIVE) /HPF Urine Mucus (Auto) SLIGHT (NEGATIVE) /HPF Urine Culture Reflexed YES (NO) Urine Glucose NEGATIVE (NEGATIVE) mg/dL 11/03/19 11/03/19 Range/Units 16:20 16:20 WBC 6.8 (4.0-10.5) K/mm3 RBC 4.23 (4.1-5.4) M/mm3 Hgb 13.1 (12.0-16.0) gm/dl Hct 39.5 (35-47) % MCV 93.4 (78-100) fl MCH 31.0 (26-32) pg MCHC 33.2 (32-36) g/dl RDW 12.8 (11.5-14.0) % Plt Count 196 (150-450) K/mm3 MPV 9.5 (7.5-11.0) fl Gran % 65.3 (36.0-66.0) % Eos # (Auto) 0.11 (0-0.5) Absolute Lymphs (auto) 1.82 (1.0-4.6) Absolute Monos (auto) 0.41 (0.0-1.3) Lymphocytes % 26.8 (24.0-44.0) % Monocytes % 6.0 (0.0-12.0) % Eosinophils % 1.6 (0.00-5.0) % Basophils % 0.3 (0.0-0.4) % Absolute Granulocytes 4.42 (1.4-6.9) Basophils # 0.02 (0-0.4) D-Dimer (215-500) ng/mL Sodium 142 (137-145) mmol/L Potassium 3.6 (3.5-5.1) mmol/L Chloride 107 (98-107) mmol/L Carbon Dioxide 27 (22-30) mmol/L Anion Gap 11.7 (5-15) MEQ/L BUN 26 H (7-17) mg/dL Creatinine 0.55 (0.52-1.04) mg/dL Estimated GFR > 60.0 ML/MIN Glucose 153 H (74-106) mg/dL Calcium 9.4 (8.4-10.2) mg/dL Magnesium 2.2 (1.6-2.3) mg/dL Total Bilirubin 0.40 (0.2-1.3) mg/dL AST 23 (14-36) U/L ALT 17 (0-35) U/L Alkaline Phosphatase 89 (38-126) U/L Troponin I (0.000-0.034) ng/mL NT-Pro-B Natriuret Pep 331 (0-1800) pg/mL Serum Total Protein 7.1 (6.3-8.2) g/dL Albumin 4.0 (3.5-5.0) g/dL Urine Color (YELLOW) Urine Appearance (CLEAR) Urine pH (5-6) Ur Specific [place] (1.005-1.025) Urine Protein (Negative) Urine Ketones (NEGATIVE) Urine Blood (0-5) Glenn/ul Urine Nitrite (NEGATIVE) Urine Bilirubin (NEGATIVE) Urine Urobilinogen (0-1) mg/dL Ur Leukocyte Esterase (NEGATIVE) Urine WBC (Auto) (0-5) /HPF Urine RBC (Auto) (0-2) /HPF U Epithel Cells (Auto) (FEW) /HPF Urine Bacteria (Auto) (NEGATIVE) /HPF Urine Mucus (Auto) (NEGATIVE) /HPF Urine Culture Reflexed (NO) Urine Glucose (NEGATIVE) mg/dL - Progress Progress: unchanged Counseled pt/family regarding: lab results, rad results - Departure Departure Disposition: Home Clinical Impression: Dyspnea Condition: Stable Critical Care Time: No Referrals: SARKIS MIKE MD [Primary Care Provider] - Instructions: Shortness of Breath (Dyspnea) (DC) Additional Instructions: Follow up with private doctor tomorrow. Drink more water.
[2019-11-03 16:34] LABS: Absolute Neutrophil Ct (ANC) 4.42 (1.4-6.9); BASOPHIL % 0.3 % (0.0-0.4); Basophil (Absolute #) 0.02 (0-0.4); Eosinophil % 1.6 % (0.00-5.0); Eosinophil (Absolute #) 0.11 (0-0.5); Hematocrit 39.5 % (35-47); Hemoglobin 13.1 gm/dl (12.0-16.0); Lymphocyte (Absolute #) 1.82 (1.0-4.6); Lymphocytes % 26.8 % (24.0-44.0); Mean Cell Volume 93.4 fl (78-100); Mean Corpuscular Hgb Concent. 33.2 g/dl (32-36); Mean Platelet Volume 9.5 fl (7.5-11.0); Monocyte (Absolute #) 0.41 (0.0-1.3); Neutrophil % 65.3 % (36.0-66.0); Platelet Count 196 K/mm3 (150-450); Red Blood Count 4.23 M/mm3 (4.1-5.4); Red Cell Distribution Width 12.8 % (11.5-14.0); White Blood Count 6.8 K/mm3 (4.0-10.5)
[2019-11-03 16:56] LABS: ALKALINE PHOSPHATASE 89 U/L (38-126); ANION GAP 11.7 MEQ/L (5-15); BLOOD UREA NITROGEN 26 mg/dL (7-17); CHLORIDE 107 mmol/L (98-107); Calcium 9.4 mg/dL (8.4-10.2); Carbon Dioxide 27 mmol/L (22-30); Creatinine 1 0.55 mg/dL (0.52-1.04); Glucose 153 mg/dL (74-106); MAGNESIUM 2.2 mg/dL (1.6-2.3); NT PRO BNP 331 pg/mL (0-1800); Potassium 3.6 mmol/L (3.5-5.1); SGOT/AST 23 U/L (14-36); SGPT/ALT 17 U/L (0-35); SODIUM 142 mmol/L (137-145); Total Protein 7.1 g/dL (6.3-8.2)
[2019-11-03] MEDS ORDERED: BENADRYL 50 MG/ML IV ONE (18:19)
[2019-11-03] MEDS ORDERED: BENADRYL 50 MG/ML ONE (18:41)
--- NOTE | 2019-11-03 19:07 | XRAY ---
Indication: Short of breath. Comparison: October 17, 2019. PA/lateral chest remains clear. Heart is not enlarged again with coronary stent grafts. Previous hiatal hernia not seen, presumed sliding type. No new/acute findings.
[2019-11-03 21:05] LABS: Appearance CLEAR (CLEAR); Bilirubin NEGATIVE (NEGATIVE); Blood MODERATE Ery/ul (0-5); Glucose NEGATIVE (NEGATIVE); Ketones NEGATIVE (NEGATIVE); Leukocyte Esterase TRACE (NEGATIVE); Mucus SLIGHT /HPF (NEGATIVE); Nitrite NEGATIVE (NEGATIVE); Protein,Urine Dip NEGATIVE (Negative); Specific Gravity 1.026 (1.005-1.025); Urobilinogen NEGATIVE mg/dL (0-1)
[2019-11-03 21:13] VITALS: BP 134/70; PULSE 73
[2019-11-03 21:24] LABS: Bacteria NONE SEEN /HPF (NEGATIVE)
[2019-11-03 21:53] VITALS: O2SAT 95
--- NOTE | 2019-11-04 09:50 | XRAY ---
Indication: Short of breath. Elevated d-dimer. Multiple contiguous axial images obtained through the chest using 100 cc Isovue 370 contrast and PE protocol. Comparison: None There is good opacification of the pulmonary arteries to include the lobar and segmental branches. No filling defect or pulmonary embolus. Heart is not enlarged. Aorta is normal in course and caliber. No pathologic mediastinal or hilar lymphadenopathy. Small hiatal hernia. Lungs demonstrates minimal bilateral dependent atelectasis. No suspicious pulmonary mass, infiltrate, or effusion. Bony thorax intact with mild degenerative changes throughout the spine. Limited upper abdomen demonstrates scattered colonic diverticulosis. Impression: 1. Negative pulmonary embolus. No acute cardiopulmonary abnormalities. 2. Incidental small hiatal hernia and colonic diverticulosis. Comment: Preliminary interpretation was made by [facility]. No critical discrepancy.
== END 2019-11-03 22:20 | disposition home or self-care (01) ==
LOC: ED 15:32
DX: R06.00 Dyspnea, unspecified (principal); I25.10 Atherosclerotic heart disease of native coronary artery without angina pectoris; I25.2 Old myocardial infarction; J45.909 Unspecified asthma, uncomplicated; Z79.899 Other long term (current) drug therapy
CPT/HCPCS: 36000; 36415; 71046; 71260; 80053; 81001; 83735; 83880; 84484; 85025; 85379; 87086; 93005; 96374; 99284; J1200

== ENCOUNTER 2020-11-26 20:19 | Emergency (ER) | payer MEDICARE, OTHER ==
[2020-11-26 21:18] LABS: Absolute Neutrophil Ct (ANC) 3.21 (1.4-6.9); BASOPHIL % 0.5 % (0.0-0.4); Basophil (Absolute #) 0.03 (0-0.4); Eosinophil % 2.2 % (0.00-5.0); Eosinophil (Absolute #) 0.13 (0-0.5); Hematocrit 33.6 % (35-47); Hemoglobin 10.6 gm/dl (12.0-16.0); Lymphocyte (Absolute #) 2.11 (1.0-4.6); Lymphocytes % 35.3 % (24.0-44.0); Mean Corpuscular Hemoglobin 30.3 pg (26-32); Mean Corpuscular Hgb Concent. 31.5 g/dl (32-36); Mean Platelet Volume 8.4 fl (7.5-11.0); Monocyte (Absolute #) 0.49 (0.0-1.3); Monocytes % 8.2 % (0.0-12.0); Neutrophil % 53.8 % (36.0-66.0); Platelet Count 485 K/mm3 (150-450); Red Cell Distribution Width 13.4 % (11.5-14.0)
[2020-11-26] MEDS ORDERED: Sodium Chloride 0.9% 500 ML 500 ML IV ONE ×2 (21:24→21:32)
[2020-11-26 21:29] LABS: ALKALINE PHOSPHATASE 145 U/L (38-126); AMYLASE 55 U/L (30-110); ANION GAP 10.2 MEQ/L (5-15); Appearance SLIGHTLY CLOUDY (CLEAR); BLOOD UREA NITROGEN 20 mg/dL (7-17); Bilirubin NEGATIVE (NEGATIVE); Blood MODERATE Ery/ul (0-5); CHLORIDE 102 mmol/L (98-107); Calcium 9.8 mg/dL (8.4-10.2); Carbon Dioxide 28 mmol/L (22-30); Creatinine 1 0.61 mg/dL (0.52-1.04); EST GLOMERULAR FILTRATION RATE > 60.0 ML/MIN; Epithelial Cells RARE /HPF (FEW); Glucose 125 mg/dL (74-106); Glucose NEGATIVE (NEGATIVE); Ketones NEGATIVE (NEGATIVE); LIPASE 88 U/L (23-300); Leukocyte Esterase SMALL (NEGATIVE); Mucus MODERATE /HPF (NEGATIVE); Nitrite NEGATIVE (NEGATIVE); Potassium 3.9 mmol/L (3.5-5.1); Protein,Urine Dip 30 (Negative); SGOT/AST 24 U/L (14-36); SGPT/ALT 14 U/L (0-35); SODIUM 136 mmol/L (137-145); Specific Gravity 1.027 (1.005-1.025); Total Protein 7.1 g/dL (6.3-8.2); Urobilinogen 4 mg/dL (0-1)
[2020-11-26] MEDS ORDERED: HYDROCODONE-ACETAMIN 10-325 MG PO ONE (21:32)
--- NOTE | 2020-11-26 21:44 | ERPHSYRPT ---
- History of Present Illness Time Seen by Provider: 11/26/20 20:20 Historian: patient, family Exam Limitations: no limitations (Hip) Patient Subjective Stated Complaint: pt states; "I have been having gallbladder problems for the past 6 weeks." Triage Nursing Assessment: pt ambulated into the er; pt is axo x4; c/o abd pain; pt states 5/10 pain to rt upper and lower quad pain, pt states pain radiates to back; daughter states "she had a CT of her gallblader yesterday and is suppose to have a ultrasound tuesday; pt abd is soft, round; hyperactive bowel sounds in all quads; tenderness with palpation to RUQ and RLQ; clear lung sounds in all lobes; clear heart tone; recent knee replacement to rt knee, raymond in place; pt states she had a norco at 1100 and zofran at 1700; pt is hypertensive Physician History: 80 years old female presented in the ER with chief complaint of right upper quadrant/epigastric area pain off and on for the last 2 to 3 weeks with progressive worsening. She has outpatient CT abdomen pelvis done yesterday which showed distended gallbladder and is scheduled to have ultrasound done in 2 days. Patient report today her pain is getting worse moderate to severe sharp right upper quadrant wrapping around her to go to the back. Aggravated with movements palpation, associated with nausea, partial relief with taking [place] 10 which he is on for recent right total knee replacement. Denies any fever or chills. Patient wants to be transferred to [facility]. Timing/Duration: week(s), intermittent, gradual onset, worse Activities at Onset: rest Quality: sharpness Abdominal Pain Onset Location: RUQ, epigastric, periumbilical Pain Radiation: back Severity of Pain-Max: moderate Severity of Pain-Current: moderate Modifying Factors: Worsens With: movement, palpation Associated Symptoms: nausea Allergies/Adverse Reactions: Beta-Blockers (Beta-Adrenergic Bloc Allergy (Verified 11/26/20 20:34) carvedilol [From Coreg] Allergy (Verified 11/26/20 21:41) morphine Allergy (Verified 11/26/20 20:34) Hives pitavastatin [From Livalo] Allergy (Verified 11/26/20 21:41) rosuvastatin [From Crestor] Allergy (Verified 11/26/20 21:41) walnut Allergy (Verified 11/26/20 21:41) Anaphylactic Reaction Home Medications: Aspirin EC 325 mg [Ecotrin 325 MG] 325 mg PO BID 11/26/20 [History] Hydrocodone/Acetaminophen [Hydrocodone-Acetamin 10-300 mg] 1 each PO Q8H PRN 11/26/20 [History] Metoprolol Succinate [Toprol Xl] 25 mg PO DAILY 11/26/20 [History] [place]-3 Fatty Acids [[place]-3] 1,000 mg PO DAILY 11/26/20 [History] Ondansetron ODT 4 MG [Zofran Odt 4 mg] 4 mg PO Q8H PRN 11/26/20 [History] lisinopriL [Lisinopril] 5 mg PO DAILY 11/26/20 [History] Hx Tetanus, Diphtheria Vaccination/Date Given: No (unsure) Hx Influenza Vaccination/Date Given: No Hx Pneumococcal Vaccination/Date Given: No Travel Risk - International Travel Have you traveled outside of the country in past 3 weeks: No - Coronavirus Screening Are you exhibiting any of the following symptoms?: No Close contact with a COVID-19 positive Pt in past 14-21 Days: No - Vaccine Status Have you recieved a Covid-19 vaccination: No - Review of Systems Constitutional: No Symptoms Eyes: No Symptoms Ears, Nose, & Throat: No Symptoms Respiratory: No Symptoms Cardiac: No Symptoms Abdominal/Gastrointestinal: Abdominal Pain, Nausea Genitourinary Symptoms: No Symptoms Musculoskeletal: Arthralgias, Joint Pain Skin: No Symptoms Neurological: No Symptoms Psychological: No Symptoms Endocrine: No Symptoms Hematologic/Lymphatic: No Symptoms Immunological/Allergic: No Symptoms - Past Medical History Pertinent Past Medical History: Yes Neurological History: No Pertinent History ENT History: No Pertinent History Cardiac History: Coronary Artery Disease, Hypertension, Myocardial Infarction ([place]) Respiratory History: Asthma Endocrine Medical History: No Pertinent History Musculoskeletal History: No Pertinent History GI Medical History: No Pertinent History History: No Pertinent History Psycho-Social History: No Pertinent History Female Reproductive Disorders: No Pertinent History - Past Surgical History Past Surgical History: Yes Neuro Surgical History: No Pertinent History Cardiac: Cardiac Catheterization, Cardiac Stent, Pacemaker Respiratory: No Pertinent History Gastrointestinal: No Pertinent History Genitourinary: No Pertinent History Musculoskeletal: Orthopedic Surgery Female Surgical History: Hysterectomy Other Surgical History: left shoulder, rt knee replacement, 2 heart stents - Social History Smoking Status: Never smoker Exposure to second hand smoke: No Drug Use: none Patient Lives Alone: No - Female History Hx Now: No - Nursing Vital Signs Nursing Vital Signs: Initial Vital Signs Temperature 97.5 F 11/26/20 20:41 Pulse Rate 75 11/26/20 20:41 Respiratory Rate 16 11/26/20 20:41 Blood Pressure 150/82 11/26/20 20:41 O2 Sat by Pulse Oximetry 99 11/26/20 20:41 Pain Scale Pain Intensity 2 - Physical Exam General Appearance: no apparent distress, alert Eye Exam: eyes nml inspection Ears, Nose, Throat Exam: normal ENT inspection, pharynx normal Neck Exam: normal inspection, supple, full range of motion Respiratory Exam: normal breath sounds, lungs clear Cardiovascular Exam: regular rate/rhythm, normal heart sounds Gastrointestinal/Abdomen Exam: soft, normal bowel sounds, tenderness (Right upper quadrant with positive Rodas sign), guarding (Right upper quadrant) Back Exam: normal inspection, normal range of motion Extremity Exam: normal inspection, normal range of motion Neurologic Exam: alert, oriented x 3, cooperative Skin Exam: normal color SpO2 Interpretation: normal SpO2: 99 O2 Delivery: Room Air Ordered Tests: Active Orders 24 hr Category Date Time Status IV Insertion STAT Care 11/26/20 20:51 Active AMYLASE Stat Lab 11/26/20 21:10 Completed CBC W DIFF Stat Lab 11/26/20 21:10 Completed CMP Stat Lab 11/26/20 21:10 Completed CULTURE,URINE Stat Lab 11/26/20 21:10 Received LIPASE Stat Lab 11/26/20 21:10 Completed Lactic Acid Stat Lab 11/26/20 20:58 Completed UA W/RFX UR CULTURE Stat Lab 11/26/20 21:10 Completed Medication Summary Discontinued Medications Generic Name Dose Route Start Last Admin Trade Name Freq PRN Reason Stop Dose Admin Hydrocodone Bitart/Acetaminophen 1 tablet 11/26/20 21:32 11/26/20 21:34 Hydrocodone-Acetamin 10-325 Mg PO 11/26/20 21:33 1 tablet STAT ONE Administration Sodium Chloride Confirm 11/26/20 21:24 Sodium Chloride 0.9% 500 Ml Administered 11/26/20 21:25 Dose 500 mls @ ud IV .STK-MED ONE Sodium Chloride 500 mls @ 500 mls/hr 11/26/20 21:32 11/26/20 21:34 Sodium Chloride 0.9% 500 Ml IV 11/26/20 22:31 500 mls/hr .Q1H ONE Administration Lab/Rad Data: Laboratory Result Diagrams 11/26/20 21:10 11/26/20 21:10 Laboratory Results 11/26/20 11/26/20 11/26/20 Range/Units 21:10 21:10 21:10 WBC 6.0 (4.0-10.5) K/mm3 RBC 3.50 L (4.1-5.4) M/mm3 Hgb 10.6 L (12.0-16.0) gm/dl Hct 33.6 L (35-47) % MCV 96.0 (78-100) fl MCH 30.3 (26-32) pg MCHC 31.5 L (32-36) g/dl RDW 13.4 (11.5-14.0) % Plt Count 485 H (150-450) K/mm3 MPV 8.4 (7.5-11.0) fl Gran % 53.8 (36.0-66.0) % Eos # (Auto) 0.13 (0-0.5) Absolute Lymphs (auto) 2.11 (1.0-4.6) Absolute Monos (auto) 0.49 (0.0-1.3) Lymphocytes % 35.3 (24.0-44.0) % Monocytes % 8.2 (0.0-12.0) % Eosinophils % 2.2 (0.00-5.0) % Basophils % 0.5 (0.0-0.4) % Absolute Granulocytes 3.21 (1.4-6.9) Basophils # 0.03 (0-0.4) Sodium 136 L (137-145) mmol/L Potassium 3.9 (3.5-5.1) mmol/L Chloride 102 (98-107) mmol/L Carbon Dioxide 28 (22-30) mmol/L Anion Gap 10.2 (5-15) MEQ/L BUN 20 H (7-17) mg/dL Creatinine 0.61 (0.52-1.04) mg/dL Estimated GFR > 60.0 ML/MIN Glucose 125 H (74-106) mg/dL Lactic Acid (0.4-2.0) Calcium 9.8 (8.4-10.2) mg/dL Total Bilirubin 0.30 (0.2-1.3) mg/dL AST 24 (14-36) U/L ALT 14 (0-35) U/L Alkaline Phosphatase 145 H (38-126) U/L Serum Total Protein 7.1 (6.3-8.2) g/dL Albumin 4.0 (3.5-5.0) g/dL Amylase 55 (30-110) U/L Lipase 88 (23-300) U/L Urine Color HAMLET (YELLOW) Urine Appearance SLIGHTLY CLOUDY (CLEAR) Urine pH 5.0 (5-6) Ur Specific [place] 1.027 (1.005-1.025) Urine Protein 30 (Negative) Urine Ketones NEGATIVE (NEGATIVE) Urine Blood MODERATE (0-5) Glenn/ul Urine Nitrite NEGATIVE (NEGATIVE) Urine Bilirubin NEGATIVE (NEGATIVE) Urine Urobilinogen 4 (0-1) mg/dL Ur Leukocyte Esterase SMALL (NEGATIVE) Urine WBC (Auto) 3-5 (0-5) /HPF Urine RBC (Auto) 3-5 (0-2) /HPF U Epithel Cells (Auto) RARE (FEW) /HPF Urine Bacteria (Auto) NONE (NEGATIVE) /HPF Calcium Oxalate Crystal 6-10 (NEGATIVE) /HPF Urine Mucus (Auto) MODERATE (NEGATIVE) /HPF Urine Culture Reflexed YES (NO) Urine Glucose NEGATIVE (NEGATIVE) mg/dL 11/26/20 Range/Units 20:58 WBC (4.0-10.5) K/mm3 RBC (4.1-5.4) M/mm3 Hgb (12.0-16.0) gm/dl Hct (35-47) % MCV (78-100) fl MCH (26-32) pg MCHC (32-36) g/dl RDW (11.5-14.0) % Plt Count (150-450) K/mm3 MPV (7.5-11.0) fl Gran % (36.0-66.0) % Eos # (Auto) (0-0.5) Absolute Lymphs (auto) (1.0-4.6) Absolute Monos (auto) (0.0-1.3) Lymphocytes % (24.0-44.0) % Monocytes % (0.0-12.0) % Eosinophils % (0.00-5.0) % Basophils % (0.0-0.4) % Absolute Granulocytes (1.4-6.9) Basophils # (0-0.4) Sodium (137-145) mmol/L Potassium (3.5-5.1) mmol/L Chloride (98-107) mmol/L Carbon Dioxide (22-30) mmol/L Anion Gap (5-15) MEQ/L BUN (7-17) mg/dL Creatinine (0.52-1.04) mg/dL Estimated GFR ML/MIN Glucose (74-106) mg/dL Lactic Acid 2.0 (0.4-2.0) Calcium (8.4-10.2) mg/dL Total Bilirubin (0.2-1.3) mg/dL AST (14-36) U/L ALT (0-35) U/L Alkaline Phosphatase (38-126) U/L Serum Total Protein (6.3-8.2) g/dL Albumin (3.5-5.0) g/dL Amylase (30-110) U/L Lipase (23-300) U/L Urine Color (YELLOW) Urine Appearance (CLEAR) Urine pH (5-6) Ur Specific [place] (1.005-1.025) Urine Protein (Negative) Urine Ketones (NEGATIVE) Urine Blood (0-5) Glenn/ul Urine Nitrite (NEGATIVE) Urine Bilirubin (NEGATIVE) Urine Urobilinogen (0-1) mg/dL Ur Leukocyte Esterase (NEGATIVE) Urine WBC (Auto) (0-5) /HPF Urine RBC (Auto) (0-2) /HPF U Epithel Cells (Auto) (FEW) /HPF Urine Bacteria (Auto) (NEGATIVE) /HPF Calcium Oxalate Crystal (NEGATIVE) /HPF Urine Mucus (Auto) (NEGATIVE) /HPF Urine Culture Reflexed (NO) Urine Glucose (NEGATIVE) mg/dL - Progress Progress: improved, pain not gone completely, re-examined Progress Note: 11/26/20 22:45 80 years old is evaluated for right upper quadrant worsening pain. She is given fluid bolus and pain medications, on reevaluation her pain is better but not completely resolved. She has a normal white count, grossly unremarkable chemistries. No acute derangement and LFTs. She had CT done yesterday which showed distended gallbladder. I believe patient is having recurrent attacks of biliary colic versus cholecystitis and needs further evaluation and possible cholecystectomy. I have discussed with Dr. Armando, did not recommend starting her on antibiotics. We will keep her n.p.o., will continue with fluids. Discussed with Dr. Ferrara which at [facility] ER and patient is accepted for transfer. Discussed with : Pattie Counseled pt/family regarding: lab results, diagnosis, rad results - Departure Departure Disposition: Transfer Clinical Impression: Cholecystitis Condition: Stable Critical Care Time: No Referrals: SARKIS MIKE MD [Primary Care Provider] -
[2020-11-26 22:40] VITALS: BP 137/75; PULSE 78
[2020-11-26 22:47] VITALS: O2SAT 99
== END 2020-11-26 23:11 | disposition short-term general hospital (02) ==
LOC: ED 20:19
DX: K81.9 Cholecystitis, unspecified (principal); I10 Essential (primary) hypertension; Z79.899 Other long term (current) drug therapy; I25.10 Atherosclerotic heart disease of native coronary artery without angina pectoris; I21.9 Acute myocardial infarction, unspecified
CPT/HCPCS: 36000; 36415; 80053; 81001; 82150; 83036; 83605; 83690; 85025; 87086; 96360; 99285; A9270-GY